=== PATIENT | female | born 1985 | race Caucasian/White ===

== ENCOUNTER 2017-02-06 14:50 | Emergency (ER) | payer OTHER ==
[~2017-02-06] VITALS: Ht 170.2 cm; Wt 99.8 kg
[~2017-02-06 14:50] MED LIST: BACTRIM DS TABL1 TAB PO; DOXYCYCLINE PO; VICODIN 5/500 T1 TAB PO
== END 2017-02-06 15:50 | disposition home or self-care (01) ==
LOC: CED 14:50 → CFTX 14:50
DX: S16.1XXA Strain of muscle, fascia and tendon at neck level, initial encounter (principal); J45.909 Unspecified asthma, uncomplicated; Z90.49 Acquired absence of other specified parts of digestive tract; Z90.710 Acquired absence of both cervix and uterus; Z88.1 Allergy status to other antibiotic agents; X50.0XXA Overexertion from strenuous movement or load, initial encounter
CPT/HCPCS: 99283